=== PATIENT | female | born 1975 ===

== ENCOUNTER 2021-01-12 08:15 | Inpatient (IN) | payer OTHER ==
[~2021-01-12] VITALS: Ht 157.5 cm; Wt 80.3 kg
[2021-01-12] MEDS ORDERED: CENTRUM ADULTS1 EACH PO (10:54)
[2021-01-12] MEDS ORDERED: INTEGRA CAPSUL1 EACH PO (10:54)
[2021-01-17] MEDS ORDERED: LANSOPRAZOLE30 MG (08:10)
[2021-01-19] MEDS ORDERED: CODE1TAB37 PO (08:00)
[2021-01-19] MEDS ORDERED: KETO10TA2 PO (08:01)
== END 2021-01-19 08:27 | disposition home or self-care (01) | DRG 743 ==
LOC: SURG-SUITE 01-17 05:40 → O/R 01-17 05:40 → SURG-SUITE 01-17 13:26 → SURH 04-16 08:15
PROVIDERS: ADMIT Obstetrics & Gynecology Maternal & Fetal Medicine; ATTEND Obstetrics & Gynecology Maternal & Fetal Medicine
PROC: 0UB70ZZ Excision of Bilateral Fallopian Tubes, Open Approach (ICD-10-PCS; 2021-01-17)
PROC: 0UT90ZL Resection of Uterus, Supracervical, Open Approach (ICD-10-PCS; principal; 2021-01-17 07:00)
DX: D25.1 Intramural leiomyoma of uterus (principal); D25.2 Subserosal leiomyoma of uterus; N80.0 Endometriosis of uterus; N92.0 Excessive and frequent menstruation with regular cycle

== ENCOUNTER 2025-05-16 08:42 | Outpatient (CLI) | payer OTHER ==
[~2025-05-16 08:42] MED LIST: CENTRUM ADULTS1 EACH PO; CODE1TAB37 PO; INTEGRA CAPSUL1 EACH PO; KETO10TA2 PO; LANSOPRAZOLE30 MG
== END 2025-05-16 08:43 | disposition home or self-care (01) ==
LOC: RX STUDY 08:42
PROVIDERS: ATTEND Surgery
DX: K57.30 Diverticulosis of large intestine without perforation or abscess without bleeding (principal); K58.0 Irritable bowel syndrome with diarrhea; K58.2 Mixed irritable bowel syndrome

== ENCOUNTER 2025-05-31 09:18 | Outpatient (CLI) | payer OTHER | END 2025-05-31 09:32 | disposition home or self-care (01) | LOC: TOM 09:18 | PROVIDERS: ATTEND Surgery | DX: K57.30 Diverticulosis of large intestine without perforation or abscess without bleeding (principal); K58.0 Irritable bowel syndrome with diarrhea; K58.2 Mixed irritable bowel syndrome ==

== ENCOUNTER 2025-06-14 14:23 | Outpatient (CLI) | payer OTHER ==
[2025-06-14 14:50] LABS: BASO % 0.3 % (0.1-1.2); EOS # 0.10 (0.04-0.54); EOS % 0.8 % (0.7-7.0); LYMPH # 1.69 (1.18-3.74); LYMPH % 12.9 % (19.3-53.1); MEAN PLATELET VOLUME 9.40 fl (9.4-12.4); MONO # 1.51 (0.24-0.82); MONO % 11.5 % (4.7-12.5); NEUT # 9.74 (1.56-6.13); NEUT % 74.1 % (34.0-71.1); RED CELL DISTRIBUTION WIDTH 12.4 % (11.6-14.4)
== END 2025-06-14 14:38 | disposition home or self-care (01) ==
LOC: LAB 14:23
PROVIDERS: ATTEND Surgery
DX: K57.30 Diverticulosis of large intestine without perforation or abscess without bleeding (principal); K58.0 Irritable bowel syndrome with diarrhea; K58.2 Mixed irritable bowel syndrome